=== PATIENT | female | born 1950 | race Caucasian/White ===

== ENCOUNTER 2023-04-22 12:58 | Emergency (ER) | payer MEDICARE, SELFPAY ==
[2023-04-22 13:06] VITALS: BP 129/75; PULSE 57; RESP 20; TEMP 36.6; O2SAT 97
[2023-04-22 13:14] VITALS: BP 129/75; PULSE 57; RESP 20; TEMP 36.6; O2SAT 97
--- NOTE | 2023-04-22 13:53 | ED.FEMALEGU ---
HPI - Female Genitourinary General Chief complaint: Urogenital-Female Stated complaint: Poss uti Time Seen by Provider: 04/22/23 13:53 Source: patient and RN notes reviewed Mode of arrival: ambulatory Limitations: no limitations History of Present Illness HPI Narrative: 72-year-old female presented for complaint of burning with urination for over 1 week. Denies hematuria, abdominal pain, flank pain, discharge/itching, n/v/d/f/c. Not taking anything for symptoms. states she drinks very little water, mostly drinks coffee. Denies history of frequent UTIs. Related Data Home Medications Medication Instructions Recorded Confirmed alprazolam 0.5 mg tablet mg 04/22/23 amlodipine 10 mg tablet mg 04/22/23 metoprolol tartrate 50 mg tablet mg 04/22/23 simvastatin 20 mg tablet mg 04/22/23 triamterene 37.5 tablet 04/22/23 mg-hydrochlorothiazide 25 mg tablet Allergies Allergy/AdvReac Type Severity Reaction Status Date / Time Unable to Assess Allergy Verified 04/22/23 13:13 Review of Systems Review of Systems: CONSTITUTIONAL: Denies body aches, fever, chills, or sweats. CARDIOVASCULAR: Denies chest pain, palpitations, or edema. RESPIRATORY: Denies cough or dyspnea. GASTROINTESTINAL: Denies abdominal pain, nausea, vomiting, or diarrhea. GENITOURINARY: Reports dysuria, Denies frequency, urgency, hematuria, flank pain SKIN: Denies rash, itching, or wounds. MUSCULOSKELETAL: Denies back pain or myalgia. [facility] Past Medical History Medical History (Updated 04/22/23 @ 14:02 by Shayla Anderson, VIDHYA) No pertinent past medical history Comments At time of signature, I have reviewed and agree with nursing past medical, surgical, social and family history unless otherwise noted. Please see nursing chart for further information. There is no relevant family history pertinent to the presenting complaint Exam Narrative: GENERAL: Well-appearing and in no acute distress. HEAD: Normocephalic EYES: EOMI. . ENT: Mucous membranes pink and moist. NECK: Normal AROM. Supple. CHEST: No respiratory distress. Clear to auscultation. HEART: Regular rate and rhythm. ABDOMEN: Soft, nontender, nondistended, normal active bowel sounds. No CVA tenderness SKIN: Warm, dry, no rash. NEURO: No focal deficits. Alert and oriented x3. Gait steady. PSYCH: Normal affect. Course Course Emergency Course: Patient is aware of diagnosis, understands and agrees to treatment plan. Anticipatory guidance given. Patient agrees to follow-up as directed and is aware of reasons to seek care at the emergency department. Portions of this record may have been created with voice recognition software Level of Care: Express Care Visit Vital Signs Vital signs: Vital Signs Temperature 97.8 F 04/22/23 13:06 Pulse Rate 57 L 04/22/23 13:06 Respiratory Rate 04/22/23 13:06 Blood Pressure 129/75 04/22/23 13:06 Pulse Oximetry 97 04/22/23 13:06 Oxygen Delivery Room Air 04/22/23 13:06 Temperature 97.8 F 04/22/23 13:14 Pulse Rate 57 L 04/22/23 13:14 Respiratory Rate 04/22/23 13:14 Blood Pressure 129/75 04/22/23 13:14 Pulse Oximetry 97 04/22/23 13:14 Oxygen Delivery Room Air 04/22/23 13:14 Reviewed MDM - Female Genitourinary MDM Narrative Medical decision making narrative: Discussed physical exam findings and results of urine dip (neg). Will await culture report and treat accordingly. v/u. Advised supportive measures and signs/symptoms to go to the ER. Pt is appropriate for outpt treatment and f/u. Differential Diagnosis Differential diagnosis: Likely urinary tract infection, bacterial vaginosis, vaginitis and cystitis Lab Data Labs: Urine Glucose Negative Reference Range: Negative Urine Bilirubin Negative Reference Range: Negative Urine Ketone
== END 2023-04-22 14:08 | disposition home or self-care (01) ==
PROVIDERS: Emergency Provider Nurse Practitioner Family; PCP Internal Medicine
DX: R30.0 Dysuria (principal); Z79.899 Other long term (current) drug therapy
CPT/HCPCS: 81003; 87086; 99213; G0463